=== PATIENT | female | born 1985 | race Caucasian/White ===

== ENCOUNTER 2022-06-16 18:11 | Outpatient (CLI) | payer OTHER, MEDICAID, SELFPAY ==
--- NOTE | 2022-06-16 19:15 | P.TNLD_ITS ---
Visit Information Visit Information Date of evaluation: 06/16/22 On-call OB Provider: Burke Truong Reason for Evaluation: Yes other Comments/Additional reasons for admission: 37 yo @ 33 wks EGA who has apparently received PNC at [facility] (?) who presents for evaluation after being seen by EMS on [place] for rapid heart rate and episodic visual changes which have occurred over the past couple of weeks but not ongoing currently. Apparently the concern of EMS was for possible preeclampsia due to her history of intermittent visual changes but she's had no BP issues and also denies headaches or RUQ kirti. According to the patient her baby has been diagnosed recently with a significant cardiac anomaly requiring delivery at [facility] and she is scheduled for evaluation at [facility] early next week. Unfortunately no records are available for review. Vital Signs Vital Signs: BP = 128/83 P = 82-83 T = 36.6C [facility] Surgical History (Updated 11/20/17 @ 05:57 by Conversion Provider) Status post delivery (11/28/10) Exam Narrative Exam Narrative: No PE performed Evaluation Evaluation Baseline heart rate: 125 Variability: Moderate (11-25) monitor accelerations: Present Monitor Decelerations: Absent Category of Tracing: Reactive Status: Category l Comments: No contractions noted. Diagnosis, Plan/Disposition Final Diagnosis (1) : Status: Acute Problem details: 33+ wks EGA according to patient's stated VANESSA. No PN records availabe for review to confirm. (2) complicated by congenital heart disease: Status: Acute Problem details: History provided by patient. Scheduled for echo at [facility] and plans for delivery at [facility] due to her infant's congenital heart defect according to the patient. No records available for review/confirmation. Plan/Disposition Plan: NST: Reactive with no contractions BP: Normal BP, no evidence of elevation UA: SG elevated w/ trace ketonuria and trace proteinuria; Protein:Creatinine ration .02 D/C home w/ counseling per BC RN, observe BP for any significant elevations, and she will return to the care of her CNM with plans for delivery at [facility] due to CHD according to the patient. Return PRN for re-assessment. A copy of this note will be forwarded to her CNM care provider. OB Disposition: home
[2022-06-16 19:38] LABS: Appearance Urine UA CLEAR; Bilirubin Urine UA NEGATIVE (NEGATIVE); Color Urine UA YELLOW; Glucose Urine UA NEGATIVE (Negative); Ketones Urine UA TRACE (NEGATIVE); Leukocyte Esterase Urine UA NEGATIVE (NEGATIVE); Nitrite Urine UA NEGATIVE (Negative); Occult Blood Urine UA TRACE-INTACT (Negative); Protein Urine UA TRACE (Negative); Specific Gravity Urine UA >=1.030 (1.000-1.035); Urobilinogen Urine UA 0.2 E.U./dL (0.2)
[2022-06-16 19:40] LABS: pH Urine UA 5.5 (4.5-8.0)
[2022-06-16 19:56] LABS: Creatinine Urine Random 182.7 mg/dL
[2022-06-16 19:59] LABS: Protein (Total) Urine Random < 5 mg/dL (0-12); Protein Creatinine Ratio Urine 0.02 GRAM/24H
== END 2022-06-16 19:20 | disposition home or self-care (01) ==
LOC: OB 06-18 11:23
PROVIDERS: PCP Internal Medicine Geriatric Medicine; Referring Provider Obstetrics & Gynecology; Visit Provider Obstetrics & Gynecology
DX: O35.BXX0 Maternal care for other (suspected) fetal abnormality and damage, fetal cardiac anomalies, not applicable or unspecified (principal); O26.893 Other specified pregnancy related conditions, third trimester; H53.8 Other visual disturbances; Z3A.33 33 weeks gestation of pregnancy
CPT/HCPCS: 59025; 81003; 82570; 84156; G0378; G0379